=== PATIENT | male | born 1930 | race Two or more races ===

== ENCOUNTER 2017-10-11 05:39 | Inpatient (IN) | payer MEDICARE, OTHER ==
[2017-10-11] MEDS ORDERED: HEPARIN 1000 UNITS/NS (A-LINE) 0 ML (06:53)
[2017-10-11] MEDS ORDERED: POLYMYXIN/BACITRACIN 1L IRRIG (06:53)
[2017-10-11] MEDS ORDERED: PAPAVERINE 60 MG INJ (06:53)
[2017-10-11] MEDS ORDERED: FENTAnyl 50 MCG/ML VIAL (07:42)
[2017-10-11] MEDS ORDERED: LIDOCAINE 100 MG SYRINGE (08:06)
[2017-10-11] MEDS ORDERED: PROPOFOL 20 ML (08:06)
[2017-10-11] MEDS ORDERED: ROCURONIUM 50 MG INJ (08:06)
[2017-10-11] MEDS ORDERED: SUCCINYLCHOLINE CHLORIDE 100 MG/5 ML SYG IV (08:06)
[2017-10-11] MEDS ORDERED: CEFAZOLIN 1 GM INJ (08:06)
[2017-10-11] MEDS ORDERED: SUGAMMADEX SODIUM 200 MG/2 ML VIAL IV (08:06)
[2017-10-11] MEDS ORDERED: FENTAnyl 50 MCG/ML VIAL IV ×2 (09:00)
[2017-10-11] MEDS ORDERED: hydrALAzine 20 MG INJ IV (09:00)
[2017-10-11] MEDS ORDERED: MEPERIDINE 25 MG INJ IV (09:00)
[2017-10-11] MEDS ORDERED: DIPHENHYDRAMINE 50 MG INJ IV (09:00)
[2017-10-11] MEDS ORDERED: ONDANSETRON 4 MG INJ IV (09:00)
[2017-10-11] MEDS ORDERED: METOCLOPRAMIDE 10 MG INJ IV (09:00)
[2017-10-11] MEDS: HEPARIN 1000 UNITS/ML 10 ML INJ (09:12)
[2017-10-11] MEDS ORDERED: HEPARIN 1000 UNITS/ML 10 ML INJ (09:28)
[2017-10-11] MEDS: GELATIN SIZE 100 SPONGE (10:06)
[2017-10-11] MEDS: THROMBIN 5000 UNIT VIAL ×2 (10:06→10:15)
[2017-10-11] MEDS ORDERED: OXYCODONE/ACETAMINOPHEN (5/325) TAB PO (11:30)
[2017-10-11] MEDS ORDERED: HYDROmorphONE 0.5 MG/0.5 ML SYG IV (11:30)
[2017-10-11] MEDS ORDERED: ACETAMINOPHEN 325 MG TAB PO (11:30)
[2017-10-11] MEDS ORDERED: niCARdipine 50 MG in SOD CHLORIDE 0.9% 480 ML IV (11:30)
[2017-10-11] MEDS: LABETALOL HCL 20MG INJ IV (11:45)
[2017-10-11] MEDS: CLOPIDOGREL 75 MG TAB PO (12:50)
[2017-10-11] MEDS: ASPIRIN 81 MG TAB PO (12:50)
[2017-10-11] MEDS: HYDROmorphONE (0.2 MG/ML) 10ML SYG IV (12:50)
[2017-10-11] MEDS ORDERED: DEXTROSE 50% 50 ML SYRINGE IV ×2 (13:30)
[2017-10-11] MEDS ORDERED: GLUCOSE GEL 15 GRAM TUBE PO ×2 (13:30)
[2017-10-11] MEDS ORDERED: GLUCAGON 1 MG INJ IM (13:30)
[2017-10-11] MEDS ORDERED: GLUCOSE GEL 15 GRAM TUBE BUCCAL (13:30)
[2017-10-11] MEDS ORDERED: ALBUTEROL/IPRATROPIUM (NEB) 3 ML AMP NEB (14:00)
[2017-10-11] MEDS ORDERED: ACETAMINOPHEN 650MG/20.3ML CUP PO (14:00)
[2017-10-11] MEDS ORDERED: DOCUSATE SODIUM 100 MG CAP PO (14:00)
[2017-10-11] MEDS: CEFAZOLIN 1 GM/50 ML (PMX) 50 ML IVPB ×2 (14:45→16:08)
[2017-10-11] MEDS: HYDROmorphONE 0.5 MG/0.5 ML SYG IV ×2 (16:07→20:52)
[2017-10-11] MEDS: INSULIN ASPART [NOVOLOG] 3 ML PEN SC ×2 (17:35→21:01)
[2017-10-11] MEDS: CALCIUM ACETATE 667 MG CAP PO ×2 (17:49→20:56)
[2017-10-11] MEDS: ONDANSETRON 4 MG INJ IV (17:49)
[2017-10-11] MEDS ORDERED: SODIUM CHLORIDE 0.9% 1L BAG IV (18:30)
[2017-10-11] MEDS: hydrALAzine 20 MG INJ IV (19:49)
[2017-10-11] MEDS: ATORVASTATIN 20 MG TAB PO (20:56)
[2017-10-11] MEDS: FAMOTIDINE 20 MG TAB PO (20:57)
[2017-10-12] MEDS: CEFAZOLIN 1 GM/50 ML (PMX) 50 ML IVPB ×2 (00:06→08:06)
[2017-10-12] MEDS: ACCU-CHEK XX (01:47)
[2017-10-12] MEDS: hydrALAzine 20 MG INJ IV (02:54)
[2017-10-12] MEDS: ONDANSETRON 4 MG INJ IV (04:49)
[2017-10-12] MEDS: HYDROmorphONE 0.5 MG/0.5 ML SYG IV ×2 (05:26→18:48)
[2017-10-12 05:49] LABS: ADD MAN DIFF? NO
[2017-10-12 06:03] LABS: WHITE BLOOD COUNT 7.3 10^3/ul (4.8-10.8)
[2017-10-12 06:03] LABS: ABNORMAL IP MESSAGE 1; BASOPHILS % 0.3 % (0.0-2.0); EOSINOPHILS # 0.1 10^3/ul (0.0-0.5); EOSINOPHILS % 1.1 % (0.0-7.0); HEMATOCRIT 18.2 % (42.0-52.0); LYMPHOCYTES # 0.5 10^3/ul (0.8-2.9); LYMPHOCYTES % 6.9 % (15.0-51.0); MEAN CORPUSCULAR HGB CONC 34.1 g/dl (32.0-37.0); MEAN CORPUSCULAR VOLUME 93.8 fl (82.0-101.0); MONOCYTE # 0.5 10^3/ul (0.3-0.9); MONOCYTES % 6.9 % (0.0-11.0); NEUTROPHIL # 6.2 10^3/ul (1.6-7.5); NEUTROPHILS % 84.3 % (39.0-77.0); PLATELET COUNT 107 10^3/UL (140-415); POSITIVE DIFF @See below; RED BLOOD COUNT 1.94 10^6/ul (4.70-6.10); RED CELL DISTRIBUTION WIDTH 12.5 % (11.5-14.5)
[2017-10-12 06:06] LABS: HEMOGLOBIN 6.2 g/dl (14.0-18.0)
[2017-10-12 06:38] LABS: CHOLESTEROL 84 mg/dl (100-200)
[2017-10-12 06:38] LABS: CHOL/HDL RATIO 4.6 RATIO; HDL CHOLESTEROL 18 mg/dl (31-75); LDL CHOLESTEROL,CALCULATED 26 mg/dl; TRIGLYCERIDES 199 mg/dl (0-149)
[2017-10-12 06:44] LABS: ANION GAP 24 (8-16); BLOOD UREA NITROGEN 64 mg/dl (7-20); CARBON DIOXIDE 25 mmol/L (21-31); CHLORIDE 91 mmol/L (97-110); CREATININE 8.96 mg/dl (0.61-1.24); GLUCOSE 156 mg/dl (70-220); POTASSIUM 5.5 mmol/L (3.5-5.1); SODIUM 134 mmol/L (135-144)
[2017-10-12] MEDS: LEVOTHYROXINE 125 MCG TAB PO (07:03)
[2017-10-12 07:16] LABS: ADD MAN DIFF? NO
[2017-10-12 07:23] LABS: ABNORMAL IP MESSAGE 1; BASOPHILS % 0.2 % (0.0-2.0); EOSINOPHILS # 0.1 10^3/ul (0.0-0.5); EOSINOPHILS % 0.6 % (0.0-7.0); HEMATOCRIT 17.8 % (42.0-52.0); LYMPHOCYTES # 0.4 10^3/ul (0.8-2.9); LYMPHOCYTES % 4.9 % (15.0-51.0); MEAN CORPUSCULAR HEMOGLOBIN 32.8 pg (29.0-33.0); MEAN CORPUSCULAR HGB CONC 34.8 g/dl (32.0-37.0); MEAN CORPUSCULAR VOLUME 94.2 fl (82.0-101.0); MONOCYTE # 0.5 10^3/ul (0.3-0.9); MONOCYTES % 6.4 % (0.0-11.0); NEUTROPHIL # 7.1 10^3/ul (1.6-7.5); NEUTROPHILS % 87.4 % (39.0-77.0); PLATELET COUNT 102 10^3/UL (140-415); POSITIVE DIFF @See below; RED BLOOD COUNT 1.89 10^6/ul (4.70-6.10); RED CELL DISTRIBUTION WIDTH 12.5 % (11.5-14.5)
[2017-10-12 07:23] LABS: WHITE BLOOD COUNT 8.2 10^3/ul (4.8-10.8)
[2017-10-12 07:31] LABS: HEMOGLOBIN 6.2 g/dl (14.0-18.0)
[2017-10-12 07:52] LABS: HEMOGLOBIN A1C 6.8 % (0-5.9)
[2017-10-12] MEDS: CALCIUM ACETATE 667 MG CAP PO ×4 (08:06→20:18)
[2017-10-12] MEDS: CLOPIDOGREL 75 MG TAB PO (08:07)
[2017-10-12] MEDS: INSULIN ASPART [NOVOLOG] 3 ML PEN SC ×4 (08:20→20:26)
[2017-10-12] MEDS: ASPIRIN 325 MG TAB PO (08:20)
[2017-10-12] MEDS: INSULIN GLARGINE [LANtus] 3 ML PEN SC (08:20)
[2017-10-12 11:23] LABS: ANION GAP 27 (8-16); BLOOD UREA NITROGEN 70 mg/dl (7-20); CALCIUM 8.9 mg/dl (8.4-10.2); CARBON DIOXIDE 24 mmol/L (21-31); CHLORIDE 89 mmol/L (97-110); CREATININE 9.35 mg/dl (0.61-1.24); GLUCOSE 181 mg/dl (70-220); SODIUM 133 mmol/L (135-144)
[2017-10-12 11:42] LABS: POTASSIUM 6.8 mmol/L (3.5-5.1)
[2017-10-12 11:58] LABS: IMMEDIATE SPIN CROSSMATCH 1 3
[2017-10-12] MEDS: EPOETIN 10000 UNITS/1 ML INJ (ESRD) SC (18:06)
[2017-10-12 20:02] LABS: ADD MAN DIFF? NO
[2017-10-12 20:07] LABS: ABNORMAL IP MESSAGE 1; BASOPHILS % 0.3 % (0.0-2.0); EOSINOPHILS # 0.1 10^3/ul (0.0-0.5); EOSINOPHILS % 1.4 % (0.0-7.0); HEMATOCRIT 23.2 % (42.0-52.0); HEMOGLOBIN 7.7 g/dl (14.0-18.0); LYMPHOCYTES # 0.5 10^3/ul (0.8-2.9); LYMPHOCYTES % 7.2 % (15.0-51.0); MEAN CORPUSCULAR HEMOGLOBIN 30.7 pg (29.0-33.0); MEAN CORPUSCULAR HGB CONC 33.2 g/dl (32.0-37.0); MEAN CORPUSCULAR VOLUME 92.4 fl (82.0-101.0); MEAN PLATELET VOLUME 10.3 fl (7.4-10.4); MONOCYTE # 0.6 10^3/ul (0.3-0.9); NEUTROPHIL # 5.6 10^3/ul (1.6-7.5); NEUTROPHILS % 81.4 % (39.0-77.0); RED BLOOD COUNT 2.51 10^6/ul (4.70-6.10); RED CELL DISTRIBUTION WIDTH 14.4 % (11.5-14.5)
[2017-10-12 20:07] LABS: WHITE BLOOD COUNT 6.9 10^3/ul (4.8-10.8)
[2017-10-12] MEDS: ATORVASTATIN 20 MG TAB PO (20:10)
[2017-10-12 20:11] LABS: PLATELET COUNT 93 10^3/UL (140-415)
[2017-10-12] MEDS: OXYCODONE/ACETAMINOPHEN (5/325) TAB PO (20:11)
[2017-10-12] MEDS: FAMOTIDINE 20 MG TAB PO (20:18)
[2017-10-12 20:23] LABS: ANION GAP 21 (8-16); BLOOD UREA NITROGEN 64 mg/dl (7-20); CALCIUM 8.7 mg/dl (8.4-10.2); CARBON DIOXIDE 25 mmol/L (21-31); CHLORIDE 94 mmol/L (97-110); CREATININE 8.42 mg/dl (0.61-1.24); GLUCOSE 138 mg/dl (70-220); POTASSIUM 5.7 mmol/L (3.5-5.1); SODIUM 134 mmol/L (135-144)
[2017-10-12] MEDS: NA POLYST SULFON 15 GM/60 ML BTL PR (22:43)
[2017-10-13] MEDS: ACCU-CHEK XX (02:00)
[2017-10-13 05:12] LABS: ADD MAN DIFF? NO
[2017-10-13 05:24] LABS: ABNORMAL IP MESSAGE 1; BASOPHILS % 0.1 % (0.0-2.0); EOSINOPHILS # 0.2 10^3/ul (0.0-0.5); EOSINOPHILS % 2.4 % (0.0-7.0); HEMATOCRIT 20.9 % (42.0-52.0); HEMOGLOBIN 7.1 g/dl (14.0-18.0); LYMPHOCYTES # 0.5 10^3/ul (0.8-2.9); LYMPHOCYTES % 7.5 % (15.0-51.0); MEAN CORPUSCULAR HEMOGLOBIN 31.6 pg (29.0-33.0); MEAN CORPUSCULAR VOLUME 92.9 fl (82.0-101.0); MEAN PLATELET VOLUME 10.1 fl (7.4-10.4); MONOCYTE # 0.5 10^3/ul (0.3-0.9); MONOCYTES % 7.8 % (0.0-11.0); NEUTROPHIL # 5.5 10^3/ul (1.6-7.5); NEUTROPHILS % 81.8 % (39.0-77.0); PLATELET COUNT 91 10^3/UL (140-415); POSITIVE DIFF @See below; RED BLOOD COUNT 2.25 10^6/ul (4.70-6.10); RED CELL DISTRIBUTION WIDTH 15.2 % (11.5-14.5)
[2017-10-13 05:24] LABS: WHITE BLOOD COUNT 6.7 10^3/ul (4.8-10.8)
[2017-10-13 05:45] LABS: ANION GAP 23 (8-16); BLOOD UREA NITROGEN 70 mg/dl (7-20); CALCIUM 9.1 mg/dl (8.4-10.2); CARBON DIOXIDE 25 mmol/L (21-31); CHLORIDE 94 mmol/L (97-110); CREATININE 9.11 mg/dl (0.61-1.24); GLUCOSE 151 mg/dl (70-220); POTASSIUM 5.8 mmol/L (3.5-5.1); SODIUM 136 mmol/L (135-144)
[2017-10-13] MEDS: LEVOTHYROXINE 125 MCG TAB PO (06:12)
[2017-10-13] MEDS: INSULIN ASPART [NOVOLOG] 3 ML PEN SC ×5 (08:24→21:00)
[2017-10-13] MEDS: CLOPIDOGREL 75 MG TAB PO (08:35)
[2017-10-13] MEDS: ASPIRIN 325 MG TAB PO (08:35)
[2017-10-13] MEDS: CALCIUM ACETATE 667 MG CAP PO ×5 (08:36→20:51)
[2017-10-13] MEDS: INSULIN GLARGINE [LANtus] 3 ML PEN SC (08:37)
[2017-10-13] MEDS: OXYCODONE/ACETAMINOPHEN (5/325) TAB PO (09:25)
[2017-10-13] MEDS ORDERED: SODIUM CHLORIDE 0.9% 1L BAG IV (10:30)
[2017-10-13] MEDS: SODIUM CHLORIDE 0.9% 1L BAG IV (12:22)
[2017-10-13] MEDS: ALBUMIN HUMAN 25% 50 ML IV (12:55)
[2017-10-13 13:28] LABS: HEPATITIS B SURFACE ANTIGEN NEGATIVE (NEGATIVE)
[2017-10-13] MEDS: FAMOTIDINE 20 MG TAB PO (20:45)
[2017-10-13] MEDS: ATORVASTATIN 20 MG TAB PO (20:45)
[2017-10-13] MEDS ORDERED: ALBUTEROL/IPRATROPIUM (NEB) 3 ML AMP HHN (21:30)
[2017-10-14] MEDS: ACCU-CHEK XX (02:00)
[2017-10-14] MEDS: LEVOTHYROXINE 125 MCG TAB PO (06:10)
[2017-10-14 07:15] LABS: ADD MAN DIFF? NO
[2017-10-14 07:18] LABS: ABNORMAL IP MESSAGE 1; BASOPHILS % 0.4 % (0.0-2.0); EOSINOPHILS # 0.2 10^3/ul (0.0-0.5); EOSINOPHILS % 2.8 % (0.0-7.0); HEMATOCRIT 20.8 % (42.0-52.0); LYMPHOCYTES # 0.6 10^3/ul (0.8-2.9); LYMPHOCYTES % 10.1 % (15.0-51.0); MEAN CORPUSCULAR HEMOGLOBIN 30.2 pg (29.0-33.0); MEAN CORPUSCULAR HGB CONC 33.7 g/dl (32.0-37.0); MEAN CORPUSCULAR VOLUME 89.7 fl (82.0-101.0); MEAN PLATELET VOLUME 10.3 fl (7.4-10.4); MONOCYTE # 0.5 10^3/ul (0.3-0.9); MONOCYTES % 8.1 % (0.0-11.0); NEUTROPHIL # 4.4 10^3/ul (1.6-7.5); NEUTROPHILS % 78.2 % (39.0-77.0); PLATELET COUNT 88 10^3/UL (140-415); POSITIVE DIFF @See below; RED BLOOD COUNT 2.32 10^6/ul (4.70-6.10); RED CELL DISTRIBUTION WIDTH 16.4 % (11.5-14.5)
[2017-10-14 07:18] LABS: WHITE BLOOD COUNT 5.7 10^3/ul (4.8-10.8)
[2017-10-14 07:41] LABS: ANION GAP 17 (8-16); BLOOD UREA NITROGEN 56 mg/dl (7-20); CALCIUM 9.3 mg/dl (8.4-10.2); CARBON DIOXIDE 30 mmol/L (21-31); CHLORIDE 95 mmol/L (97-110); CREATININE 7.79 mg/dl (0.61-1.24); GLUCOSE 126 mg/dl (70-220); POTASSIUM 4.9 mmol/L (3.5-5.1); SODIUM 137 mmol/L (135-144)
[2017-10-14] MEDS: ASPIRIN 325 MG TAB PO (08:47)
[2017-10-14] MEDS: CALCIUM ACETATE 667 MG CAP PO ×4 (08:47→20:54)
[2017-10-14] MEDS: CLOPIDOGREL 75 MG TAB PO (08:47)
[2017-10-14] MEDS: INSULIN ASPART [NOVOLOG] 3 ML PEN SC ×4 (08:51→20:47)
[2017-10-14] MEDS: INSULIN GLARGINE [LANtus] 3 ML PEN SC (09:03)
[2017-10-14 11:55] LABS: IMMEDIATE SPIN CROSSMATCH 1 1
[2017-10-14] MEDS: SOD CHLORIDE 0.9% 250 ML IV* (12:10)
[2017-10-14] MEDS: ATORVASTATIN 20 MG TAB PO (20:50)
[2017-10-14] MEDS: FAMOTIDINE 20 MG TAB PO (20:50)
[2017-10-15] MEDS: ACCU-CHEK XX (02:00)
[2017-10-15] MEDS: LEVOTHYROXINE 125 MCG TAB PO (06:09)
[2017-10-15] MEDS ORDERED: LIDOCAINE 1% (MDV) 20 ML INJ (07:31)
[2017-10-15] MEDS ORDERED: IODIXANOL LOCM 100 ML BTL (07:31)
[2017-10-15] MEDS ORDERED: MIDAZOLAM 1 MG/ML 2 ML INJ (07:32)
[2017-10-15] MEDS ORDERED: FENTAnyl 50 MCG/ML VIAL (07:32)
[2017-10-15] MEDS: CLOPIDOGREL 75 MG TAB PO (08:58)
[2017-10-15] MEDS: CALCIUM ACETATE 667 MG CAP PO ×5 (09:00→22:52)
[2017-10-15] MEDS: ASPIRIN 325 MG TAB PO (09:00)
[2017-10-15] MEDS: INSULIN ASPART [NOVOLOG] 3 ML PEN SC ×4 (09:02→21:00)
[2017-10-15] MEDS: INSULIN GLARGINE [LANtus] 3 ML PEN SC (09:05)
[2017-10-15 14:27] LABS: ADD MAN DIFF? NO
[2017-10-15 14:30] LABS: WHITE BLOOD COUNT 5.6 10^3/ul (4.8-10.8)
[2017-10-15 14:30] LABS: BASOPHILS % 0.5 % (0.0-2.0); EOSINOPHILS # 0.2 10^3/ul (0.0-0.5); EOSINOPHILS % 4.1 % (0.0-7.0); HEMATOCRIT 24.3 % (42.0-52.0); HEMOGLOBIN 8.3 g/dl (14.0-18.0); LYMPHOCYTES # 0.7 10^3/ul (0.8-2.9); MEAN CORPUSCULAR HEMOGLOBIN 30.9 pg (29.0-33.0); MEAN CORPUSCULAR HGB CONC 34.2 g/dl (32.0-37.0); MEAN CORPUSCULAR VOLUME 90.3 fl (82.0-101.0); MONOCYTE # 0.5 10^3/ul (0.3-0.9); MONOCYTES % 8.6 % (0.0-11.0); NEUTROPHIL # 4.1 10^3/ul (1.6-7.5); NEUTROPHILS % 74.4 % (39.0-77.0); POSITIVE DIFF @See below; RED BLOOD COUNT 2.69 10^6/ul (4.70-6.10); RED CELL DISTRIBUTION WIDTH 14.6 % (11.5-14.5)
[2017-10-15 14:34] LABS: PLATELET COUNT 125 10^3/UL (140-415)
[2017-10-15 14:56] LABS: ANION GAP 20 (8-16); BLOOD UREA NITROGEN 77 mg/dl (7-20); CALCIUM 9.2 mg/dl (8.4-10.2); CARBON DIOXIDE 27 mmol/L (21-31); CHLORIDE 91 mmol/L (97-110); CREATININE 9.35 mg/dl (0.61-1.24); GLUCOSE 109 mg/dl (70-220); POTASSIUM 5.2 mmol/L (3.5-5.1); SODIUM 133 mmol/L (135-144)
[2017-10-15] MEDS: ALBUMIN HUMAN 25% 50 ML IV (18:20)
[2017-10-15] MEDS: EPOETIN 10000 UNITS/1 ML INJ (ESRD) SC (18:45)
[2017-10-15] MEDS: ATORVASTATIN 20 MG TAB PO (22:20)
== END 2017-10-15 22:40 | disposition home or self-care (01) | DRG 252 ==
LOC: REC 05:39 → TEL 10-13 17:51 → ICU 14:16
PROVIDERS: Family Medicine
PROC: 041L09N Bypass Left Femoral Artery to Posterior Tibial Artery with Autologous Venous Tissue, Open Approach (ICD-10-PCS; principal; 2017-10-11 07:30)
PROC: 06BQ0ZZ Excision of Left Saphenous Vein, Open Approach (ICD-10-PCS; 2017-10-11 07:30)
PROC: 057F3ZZ Dilation of Left Cephalic Vein, Percutaneous Approach (ICD-10-PCS; 2017-10-11 07:35)
PROC: 30233N1 Transfusion of Nonautologous Red Blood Cells into Peripheral Vein, Percutaneous Approach (ICD-10-PCS; 2017-10-11 07:35)
PROC: 30233N1 Transfusion of Nonautologous Red Blood Cells into Peripheral Vein, Percutaneous Approach (ICD-10-PCS; 2017-10-11 07:35)
PROC: 30233N1 Transfusion of Nonautologous Red Blood Cells into Peripheral Vein, Percutaneous Approach (ICD-10-PCS; 2017-10-11 07:35)
PROC: 5A1D70Z Performance of Urinary Filtration, Intermittent, Less than 6 Hours Per Day (ICD-10-PCS; 2017-10-11 07:35)
PROC: B51WYZZ Fluoroscopy of Dialysis Shunt/Fistula using Other Contrast (ICD-10-PCS; 2017-10-11 07:35)
PROC: 5A1D70Z Performance of Urinary Filtration, Intermittent, Less than 6 Hours Per Day (ICD-10-PCS; 2017-10-11 07:35)
DX: I70.262 Atherosclerosis of native arteries of extremities with gangrene, left leg (principal); N18.6 End stage renal disease; I12.0 Hypertensive chronic kidney disease with stage 5 chronic kidney disease or end stage renal disease; E11.52 Type 2 diabetes mellitus with diabetic peripheral angiopathy with gangrene; E11.22 Type 2 diabetes mellitus with diabetic chronic kidney disease; D62 Acute posthemorrhagic anemia; T82.858A Stenosis of other vascular prosthetic devices, implants and grafts, initial encounter; Z99.2 Dependence on renal dialysis; E03.9 Hypothyroidism, unspecified; E78.5 Hyperlipidemia, unspecified; I25.10 Atherosclerotic heart disease of native coronary artery without angina pectoris; E87.5 Hyperkalemia; Z79.4 Long term (current) use of insulin; Z79.82 Long term (current) use of aspirin; Z87.891 Personal history of nicotine dependence
CPT/HCPCS: 36430; 36902; 80048; 80061; 82962; 83036; 83735; 84132; 84443; 85025; 86644; 86850; 86900; 86901; 86920; 87081; 87340; 90935; 97110; 97163; 97530

== ENCOUNTER 2017-11-07 05:47 | Day surgery (SDC) | payer MEDICARE, OTHER ==
[2017-11-07] MEDS ORDERED: GLYCOPYRROLATE 0.4 MG INJ (06:28)
[2017-11-07] MEDS ORDERED: FENTAnyl 50 MCG/ML VIAL (06:28)
[2017-11-07] MEDS ORDERED: LIDOCAINE 2% (SDV) 5 ML INJ (06:28)
[2017-11-07] MEDS ORDERED: MIDAZOLAM 1 MG/ML 2 ML INJ (06:28)
[2017-11-07] MEDS ORDERED: ROCURONIUM 50 MG INJ (06:28)
[2017-11-07] MEDS ORDERED: NEOSTIGMINE 3 MG/3 ML SYRINGE (06:28)
[2017-11-07] MEDS ORDERED: PROPOFOL 20 ML (06:28)
[2017-11-07] MEDS ORDERED: LABETALOL HCL 20MG INJ IV (06:30)
[2017-11-07] MEDS ORDERED: FENTAnyl 50 MCG/ML VIAL IV ×2 (06:30)
[2017-11-07] MEDS ORDERED: MIDAZOLAM 1 MG/ML 2 ML INJ IV (06:30)
[2017-11-07] MEDS ORDERED: MEPERIDINE 25 MG INJ IV (06:30)
[2017-11-07] MEDS ORDERED: ONDANSETRON 4 MG INJ IV (06:30)
[2017-11-07] MEDS ORDERED: HYDROmorphONE (0.2 MG/ML) 10ML SYG IV ×3 (06:30)
[2017-11-07] MEDS ORDERED: EPHEDrine SULFATE 50 MG/5 ML SYG IV (06:30)
[2017-11-07] MEDS ORDERED: morphine (1 MG/ML) 10ML SYRINGE IV ×3 (06:30)
[2017-11-07] MEDS ORDERED: DIPHENHYDRAMINE 50 MG INJ IV (06:30)
[2017-11-07] MEDS ORDERED: ATROPINE 1 MG/10 ML SYRINGE IV (06:30)
[2017-11-07] MEDS ORDERED: OXYCODONE/ACETAMINOPHEN (5/325) TAB PO ×2 (06:30)
[2017-11-07] MEDS ORDERED: DEXAMETHASONE 4 MG/ML 1 ML INJ (06:43)
[2017-11-07] MEDS ORDERED: ROPIVACAINE 0.5 % 30 ML VIAL (06:43)
[2017-11-07] MEDS ORDERED: ONDANSETRON 4 MG INJ (06:43)
[2017-11-07 07:28] LABS: POTASSIUM 5.5 mmol/L (3.5-5.1)
[2017-11-07] MEDS ORDERED: SUCCINYLCHOLINE CHLORIDE 100 MG/5 ML SYG IV (08:02)
[2017-11-07] MEDS: BUPIVACAINE 0.25% (MPF) 30 ML INJ (08:07)
[2017-11-07] MEDS ORDERED: FLUMAZENIL 0.5 MG INJ (08:32)
[2017-11-07] MEDS: hydrALAzine 20 MG INJ IV (08:55)
[2017-11-07] MEDS ORDERED: CEFAZOLIN 1 GM INJ (08:59)
[2017-11-07] MEDS ORDERED: hydrALAzine 20 MG INJ IV (09:00)
== END 2017-11-07 10:52 | disposition home or self-care (01) ==
LOC: SDS 05:47
DX: I96 Gangrene, not elsewhere classified (principal); I25.10 Atherosclerotic heart disease of native coronary artery without angina pectoris; I12.0 Hypertensive chronic kidney disease with stage 5 chronic kidney disease or end stage renal disease; E11.22 Type 2 diabetes mellitus with diabetic chronic kidney disease; N18.6 End stage renal disease; Z99.2 Dependence on renal dialysis; E03.9 Hypothyroidism, unspecified; Z87.891 Personal history of nicotine dependence
CPT/HCPCS: 28820; 71045; 73620; 82962; 84132; 88304; 88311; 93005